=== PATIENT | female | born 1995 | race Hispanic/Latino ===

== ENCOUNTER 2022-02-07 14:31 | Emergency (ER) | payer OTHER ==
[~2022-02-07] VITALS: Ht 165.1 cm; Wt 86.2 kg
[2022-02-07] MEDS ORDERED: FLUORESCEIN SOD(OPTH) 1 MG STRP OP ONE (17:00)
[2022-02-07] MEDS ORDERED: TETRACAINE HCL 0.5% OPTH SOLN 4 ML BTL OP ONE (17:00)
[2022-02-07] MEDS ORDERED: VIGAMOX3 ML OD (18:22)
== END 2022-02-07 18:34 | disposition home or self-care (01) ==
LOC: ER 14:39
DX: H20.9 Unspecified iridocyclitis (principal); W50.1XXA Accidental kick by another person, initial encounter; Y93.84 Activity, sleeping; Y92.008 Other place in unspecified non-institutional (private) residence as the place of occurrence of the external cause
CPT/HCPCS: 70480; 99283

== ENCOUNTER 2022-10-15 09:50 | Emergency (ER) | payer OTHER ==
[~2022-10-15] VITALS: Ht 165.1 cm; Wt 86.2 kg
[~2022-10-15 09:50] MED LIST: VIGAMOX3 ML OD
[2022-10-15] MEDS ORDERED: LIDOCAINE VISC 2% SOLN 15 ML UDC PO ONE (10:00)
[2022-10-15] MEDS ORDERED: MAGNESIUM/ALUMINUM/SIMETHICONE 30 ML UDC PO ONE (10:00)
[2022-10-15] MEDS ORDERED: SODIUM CHLORIDE 0.9% 1000ML 1,000 ML IV STA (10:00)
[2022-10-15] MEDS ORDERED: ONDANSETRON HCL INJ 2MG/ML 2ML 2 MG/ML VIAL IV STA (10:00)
[2022-10-15] MEDS ORDERED: BELLADONNA ALK/PHENOBARBITAL 5 ML UDC PO ONE (10:00)
[2022-10-15 10:12] LABS: BASOPHILS % 0.4 % (0.0-1.0); EOSINOPHILS # (AUTO) 0.1 (0.0-0.4); HEMOGLOBIN 14.6 g/dL (12.0-16.0); LYMPHOCYTES # (AUTO) 2.8 (1.0-3.2); LYMPHOCYTES % 36.3 % (18.0-39.1); MEAN CORPUSCULAR HGB CONC 32.4 g/dL (31-35); MEAN CORPUSCULAR VOLUME 95.5 fL (81-99); MONOCYTES # (AUTO) 0.5 (0.2-0.8); MONOCYTES % 5.8 % (4.4-11.3); NEUTROPHILS # (AUTO) 4.4 (2.1-6.9); NEUTROPHILS % 55.9 % (38.7-80.0); PLATELET COUNT 231 x10e3/uL (140-360); RED BLOOD COUNT 4.71 x10e6/uL (3.6-5.1); RED CELL DISTRIBUTION WIDTH 11.9 % (11.7-14.4)
[2022-10-15 10:25] LABS: CLARITY,URINE CLOUDY (CLEAR); COLOR,URINE YELLOW (YELLOW); KETONES,URINE NEGATIVE (NEGATIVE); LEUKOCYTE ESTERASE ,URINE TRACE (NEGATIVE); NITRITE,URINE POSITIVE (NEGATIVE); PROTEIN,URINE DIPSTICK NEGATIVE (NEGATIVE); URINE UROBILINOGEN 0.2 mg/dL (0.2 - 1)
[2022-10-15 10:29] LABS: ALANINE AMINOTRANSFERASE 16 IU/L (0-55); ALBUMIN 4.2 g/dL (3.5-5.0); ALBUMIN/GLOBULIN RATIO 1.3 (0.8-2.0); ALKALINE PHOSPHATASE 65 IU/L (40-150); ANION GAP 13.3 mmol/L (8-16); BLOOD UREA NITROGEN 7 mg/dL (7-26); BUN/CREATININE RATIO 10 (6-25); CALCIUM 8.9 mg/dL (8.4-10.2); CARBON DIOXIDE 21 mmol/L (22-29); CHLORIDE 109 mmol/L (98-107); CREATINE KINASE 37 IU/L (29-168); CREATININE, SERUM 0.67 mg/dL (0.57-1.11); GLUCOSE 98 mg/dL (74-118); LIPASE 14 U/L (8-78); POTASSIUM 4.3 mmol/L (3.5-5.1); SODIUM 139 mmol/L (136-145)
[2022-10-15 10:52] LABS: BACTERIA,URINE MANY /HPF; EPITHELIAL CELLS,URINE FEW /LPF
[2022-10-15 10:53] LABS: RBC,URINE 0-5 /HPF (0-5)
[2022-10-15] MEDS ORDERED: IOPAMIDOL 370 MG/ML 100 ML INFUS..BTL INJ ONE (12:05)
[2022-10-15] MEDS ORDERED: PANTOPRAZOLE SO40 MG PO (12:43)
[2022-10-15] MEDS ORDERED: LEVSIN-SL0.125 MG SL (12:43)
[2022-10-15] MEDS ORDERED: CEFUROXIME250 MG PO (12:47)
== END 2022-10-15 13:38 | disposition home or self-care (01) ==
LOC: ER 09:54
DX: K59.00 Constipation, unspecified (principal); N39.0 Urinary tract infection, site not specified
CPT/HCPCS: 36415; 74177; 80053; 81001; 82550; 82553; 83690; 84484; 84702; 85025; 87086; 99284; C9113; J2405; J7030; Q9967; 87186

== ENCOUNTER 2024-10-26 09:07 | Emergency (ER) | payer SELFPAY ==
[~2024-10-26] VITALS: Ht 165.1 cm; Wt 77.1 kg
[~2024-10-26 09:07] MED LIST changes: +BENZONATATE200 MG PO; +CEFUROXIME250 MG PO; +LEVSIN-SL0.125 MG SL; +PANTOPRAZOLE SO40 MG PO
[2024-10-26 09:41] VITALS: PULSE 85; RESP 16; TEMP 97.5; O2SAT 98
[2024-10-26 10:14] LABS: STREPTOCOCCUS GRP A ANTIGEN POSITIVE (NEGATIVE)
[2024-10-26 10:15] LABS: CORONAVIRUS COVID-19 AG NEGATIVE (NEGATIVE); INFLUENZA A AG NEGATIVE (NEGATIVE); INFLUENZA B AG NEGATIVE (NEGATIVE)
[2024-10-26] MEDS ORDERED: AMOXICILLIN500 MG PO (10:29)
== END 2024-10-26 11:24 | disposition home or self-care (01) ==
LOC: ER 09:49
DX: H92.03 Otalgia, bilateral (principal); J02.0 Streptococcal pharyngitis; Z11.52 Encounter for screening for COVID-19
CPT/HCPCS: 83518; 99282

== ENCOUNTER 2025-05-31 16:21 | Emergency (ER) | payer MEDICARE ==
[~2025-05-31 16:21] MED LIST changes: +AMOXICILLIN500 MG PO
== END 2025-05-31 17:17 | disposition left against medical advice (07) ==
LOC: ER 17:17
DX: R68.84 Jaw pain (principal)

== ENCOUNTER 2025-05-31 22:40 | Emergency (ER) | payer MEDICARE, OTHER ==
[~2025-05-31] VITALS: Ht 165.1 cm; Wt 77.1 kg
[2025-05-31 23:00] VITALS: PULSE 71; RESP 20; TEMP 97.9
[2025-06-01] MEDS: ACETAMINOPHEN 325 MG TAB PO STA (00:28)
[2025-06-01 02:36] VITALS: BP 134/72; PULSE 76; RESP 20; O2SAT 97
== END 2025-06-01 02:37 | disposition home or self-care (01) ==
LOC: ER 23:35
DX: M26.601 Right temporomandibular joint disorder, unspecified (principal); S03.41XA Sprain of jaw, right side, initial encounter; M19.09 Primary osteoarthritis, other specified site
CPT/HCPCS: 70486; 83518; 87070; 99283